=== PATIENT | male | born 1980 | race Caucasian/White ===

== ENCOUNTER 2018-04-11 08:43 | Emergency (ER) | payer SELFPAY ==
[2018-04-11] MEDS ORDERED: Naproxen 500 MG TAB ONE (09:05)
[2018-04-11] MEDS ORDERED: Dexamethasone 4 MG TAB ONE (09:05)
== END 2018-04-11 09:35 | disposition home or self-care (01) ==
LOC: MADERS 08:43
DX: S86.811A Strain of other muscle(s) and tendon(s) at lower leg level, right leg, initial encounter (principal); F17.210 Nicotine dependence, cigarettes, uncomplicated; X50.1XXA Overexertion from prolonged static or awkward postures, initial encounter
CPT/HCPCS: 99283; J8540

== ENCOUNTER 2018-07-02 11:52 | Outpatient (CLI) | payer BC ==
--- NOTE | 2018-07-02 14:19 | RAD ---
RIGHT KNEE FOUR VIEWS: History: Right knee pain. FINDINGS/IMPRESSION: No fracture, dislocation, or bony destruction is seen. There is fullness of the suprapatellar pouch, suspicious for joint effusion. POS: [facility]
== END 2018-07-02 11:53 | disposition home or self-care (01) ==
LOC: MADRAD 11:52
PROVIDERS: ATTEND Family Medicine
DX: M25.561 Pain in right knee (principal)

== ENCOUNTER 2018-09-14 20:52 | Emergency (ER) | payer BC ==
[~2018-09-14 20:52] MED LIST: Sodium Chloride 0.9% 1,000 ML BAG ONE; Succinylcholine Chloride 20 MG/ML 10 ml SYRINGE FS ONE
[2018-09-14] MEDS ORDERED: Haloperidol Lactate 5 MG/ML VIAL ONE (21:02)
[2018-09-14] MEDS ORDERED: Midazolam HCl 10 mg/2 ml Vial ONE ×2 (21:02→23:02)
[2018-09-14] MEDS ORDERED: Lorazepam 2 MG/ML VIAL ONE (21:02)
[2018-09-14 21:33] LABS: Bilirubin Negative (Negative); Blood, Urine Negative (Negative); Clarity Clear (Clear); Glucose, Urine (Dipstick) Negative (Negative); Leukocyte Negative (Negative); Nitrite Negative (Negative); Protein, Urine (Dipstick) Negative (Neg-Trace); Urobilinogen 0.2 mg/dL (0.2-1.0); pH, Urine 5.5 (5.0-9.0)
[2018-09-14 21:36] LABS: Specific Gravity, Urine 1.025 (1.002-1.036)
[2018-09-14 21:41] LABS: ALT (SGPT) 43 U/L (8-55); AST (SGOT) 46 U/L (5-34); Albumin 4.8 g/dL (3.5-5.0); Alcohol 11 mg/dL (Less than 10); Alkaline Phosphatase 104 U/L (40-150); Anion Gap 24 mmol/L (10-20); BUN (Urea Nitrogen) 14 mg/dL (8.9-20.6); Bilirubin, Total 0.3 mg/dL (0.2-1.2); Calc. Creatinine Clearance 0 mL/min (70-130); Calcium 9.7 mg/dL (7.8-10.44); Carbon Dioxide 17 mmol/L (22-29); Chloride 104 mmol/L (98-107); Estimated GFR-MDRD 47; Globulin 3.5 g/dL (2.4-3.5); Glucose 229 mg/dL (70-105); Potassium 3.8 mmol/L (3.5-5.1); Protein, Total 8.3 g/dL (6.0-8.3); Sodium 141 mmol/L (136-145)
[2018-09-14 21:42] LABS: Acetaminophen Less than 6.0 mcg/mL (10.0-30.0); Alcohol Less than 10 mg/dL (Less than 10); Band 3 % (5-11); CK (CPK) 818 U/L (30-200); Hemoglobin 15.3 g/dL (14.0-18.0); Lymphocytes 61 % (21-51); MDiff Complete? YES; Mean Corpuscular HGB CONC 33.2 g/dL (32.0-36.0); Mean Corpuscular Hemoglobin 32.6 pg (27.0-31.0); Mean Corpuscular Volume 98.4 fL (78.0-98.0); Mean Platelet Volume 9.5 fL (7.4-10.4); Monocytes 3 % (0-10); Neutrophil 31 % (42-75); Platelet Count 331 thou/uL (130-400); Platelet Morphology Comment Appears Adequate; RBC Distribution Width 11.6 % (11.5-14.5); RBC Morphology Normal; Reactive Lymphocytes 2 % (0-10); Red Blood Cell (RBC) Count 4.67 mill/uL (4.70-6.10); Salicylate Less than 8.0 mg/dL (15.0-30.0); White Blood Cell (WBC) Count 36.2 thou/uL (4.8-10.8)
[2018-09-14 21:43] LABS: Amphetamine Detected (NotDetected); Barbiturates Screen Not Detected (NotDetected); Benzodiazepine Screen Not Detected (NotDetected); Cocaine Metabolite Screen Not Detected (NotDetected); Medtox Control Line Valid? VALID (VALID); Methadone Not Detected (NotDetected); Methamphetamine Detected (NotDetected); Opiate Screen Not Detected (NotDetected); Oxycodone Screen Not Detected (NotDetected); Phencyclidine (PCP) Detected (NotDetected); THC/Cannabinoid Screen Detected (NotDetected); Tricyclic Screen Not Detected (NotDetected)
--- NOTE | 2018-09-14 22:14 | RAD ---
RADIOGRAPH CHEST 1 VIEW: Date: 09/14/18 Time: 9:33 p.m. HISTORY: 38-year-old male status post drug overdose. COMPARISON: 02/03/09 FINDINGS: The lungs are very low on the current study, making this a limited study. There is a new finding of s mall region of mildly increased attenuation at the infrahilar region of the left medial lower lung zo jennyfer. No pulmonary edema. No pneumothorax. The cardiac shadow is obscured by the shallow inspiration. IMPRESSION: 1. Limited study due to hypoinflation of the lungs. 2. Small nonspecific pulmonary patchy density in the left infrahilar region. Uncertain whether t his represents atelectasis or aspiration pneumonia. BALA [] POS: [facility]
--- NOTE | 2018-09-14 22:15 | CT ---
CT BRAIN NONCONTRAST: 09/14/18 HISTORY: 38-year-old male status post acute head trauma from fall with scalp abrasion. FINDINGS: There is no midline shift or any other mass effect. There is no evidence of acute intracranial hemor rhage, large cortical infarct, obstructive hydrocephalus, or extraaxial fluid collection. The calvar ium is intact. IMPRESSION: No acute intracranial findings. jn [] POS: [facility]
--- NOTE | 2018-09-14 22:18 | CT ---
CT CERVICAL SPINE NONCONTRAST: 09/14/18 HISTORY: 38-year-old male status post acute cervical trauma from fall. FINDINGS: Images are degraded by patient motion, and this could result in missing of nondisplaced or minimally displaced fractures. Bilateral palatine tonsils are enlarged, and kiss at midline, narrowing the oral airway. There are no jumped or perched facets. There is no convincing evidence of acute fracture. The vertebral body heights are maintained. There is no prevertebral soft tissue swelling. IMPRESSION: 1. No evidence of acute fracture or acute traumatic subluxation. 2. Hyperplasia of bilateral palatine tonsils resulting in significant narrowing of the oropharyn geal airway. blaze [] POS: [facility]
[2018-09-14] MEDS ORDERED: Fentanyl 100 MCG/2 ML VIAL ONE (22:25)
--- NOTE | 2018-09-14 23:42 | RAD ---
RADIOGRAPH CHEST 1 VIEW: Date: 09/14/18 Time: 11:27 p.m. HISTORY: 38-year-old male status post intubation. COMPARISON: 09/14/18 at 9:33 p.m. FINDINGS: This is a supine image, which would be insensitive for pneumothorax detection. Again, lung volumes ar e very low. There is a new ETT with distal tip 5 cm superior to the greta. There are now new streaky parahilar mid lung zone bilateral pulmonary densities presenting subsegmental atelectasis. The previ ously described patchy density at the infrahilar left medial lower lung zone remains. There is gaseou s distention of the stomach. IMPRESSION: 1. Endotracheal tube placement. 2. New central bilateral subsegmental atelectasis. 3. Left infrahilar density as previously mentioned. 4. Gaseous gastric distention. BALA [] POS: [facility]
[2018-09-15] MEDS ORDERED: Rocuronium Bromide 10 MG/ML (10ML VIAL) ONE (02:34)
== END 2018-09-14 23:41 | disposition short-term general hospital (02) ==
LOC: MADERS 20:52
DX: T40.7X1A Poisoning by cannabis (derivatives), accidental (unintentional), initial encounter (principal); T51.91XA Toxic effect of unspecified alcohol, accidental (unintentional), initial encounter; S00.211A Abrasion of right eyelid and periocular area, initial encounter; S00.81XA Abrasion of other part of head, initial encounter; F17.210 Nicotine dependence, cigarettes, uncomplicated; X58.XXXA Exposure to other specified factors, initial encounter
CPT/HCPCS: 31500; 51702; 70450; 71045; 72125; 80053; 80306; 80307; 81003; 82550; 85025; 93005; 96361; 96372; 96374; 96375; 96376; 99292; J1630; J2060; J2250; J3010; J7050

== ENCOUNTER 2018-11-30 11:23 | Emergency (ER) | payer BC, SELFPAY ==
[2018-11-30] MEDS ORDERED: Morphine 4 MG/ML VIAL ONE (11:50)
[2018-11-30] MEDS ORDERED: Ondansetron PF 4 MG/2 ML Vial ONE (11:50)
[2018-11-30 12:19] LABS: #Basophils 0.1 thou/uL (0.0-0.2); #Eosinphils 0.4 thou/uL (0.0-0.7); #Lymphocytes 2.4 thou/uL (1.20-3.40); #Monocytes 0.4 thou/uL (0.11-0.59); #Neutrophils 6.6 thou/uL (1.40-6.50); %Basophils 0.8 % (0.0-1.0); %Eosinophils 3.8 % (0.0-10.0); %Lymphocytes 24.5 % (21.0-51.0); %Monocytes 3.7 % (0.0-10.0); %Neutrophils 67.2 % (42.0-75.0); Hemoglobin 15.3 g/dL (14.0-18.0); Mean Corpuscular HGB CONC 33.1 g/dL (32.0-36.0); Mean Corpuscular Hemoglobin 30.8 pg (27.0-31.0); Mean Platelet Volume 8.7 fL (7.4-10.4); Platelet Count 276 thou/uL (130-400); RBC Distribution Width 11.1 % (11.5-14.5); Red Blood Cell (RBC) Count 4.96 mill/uL (4.70-6.10); White Blood Cell (WBC) Count 9.9 thou/uL (4.8-10.8)
[2018-11-30 12:31] LABS: Bilirubin Negative (Negative); Blood, Urine Negative (Negative); Clarity Clear (Clear); Glucose, Urine (Dipstick) Negative (Negative); Leukocyte Negative (Negative); Nitrite Negative (Negative); Protein, Urine (Dipstick) Negative (Neg-Trace); Specific Gravity, Urine 1.015 (1.005-1.030); Urobilinogen 0.2 mg/dL (0.2-1.0); pH, Urine 5.5 (5.0-9.0)
[2018-11-30 12:38] LABS: ALT (SGPT) 29 U/L (8-55); AST (SGOT) 20 U/L (5-34); Albumin 4.5 g/dL (3.5-5.0); Alkaline Phosphatase 119 U/L (40-150); Anion Gap 13 mmol/L (10-20); BUN (Urea Nitrogen) 14 mg/dL (8.9-20.6); Bilirubin, Total 0.4 mg/dL (0.2-1.2); Calc. Creatinine Clearance 0 mL/min (70-130); Carbon Dioxide 27 mmol/L (22-29); Chloride 102 mmol/L (98-107); Estimated GFR-MDRD 62; Globulin 3.6 g/dL (2.4-3.5); Glucose 99 mg/dL (70-105); Lipase 65 U/L (8-78); Potassium 4.1 mmol/L (3.5-5.1); Protein, Total 8.1 g/dL (6.0-8.3); Sodium 138 mmol/L (136-145)
--- NOTE | 2018-11-30 14:07 | CT ---
CT ABDOMEN AND PELVIS WITHOUT CONTRAST: History: Severe left flank pain. Comparison: None. FINDINGS: Lung bases are clear. No pericardial effusion. No hydroureteronephrosis or nephroureterolithiasis. No secondary evidence of a recently passed stone. No dilated loops of large or small bowel. No free intraperitoneal gas or fluid. The appendix is visualized and is normal. Noncontrast evaluation of the liver, spleen, pancreas, and adrenal glands are all normal. No retroperitoneal adenopathy. Skeleton is unremarkable. IMPRESSION: 1. No nephroureterolithiasis or hydroureteronephrosis. No secondary evidence of recently passed stone . 2. No acute intraabdominal abnormality. Normal appendix. POS: [facility]
== END 2018-11-30 13:30 | disposition home or self-care (01) ==
LOC: MADERS 11:23
DX: R10.9 Unspecified abdominal pain (principal); F17.200 Nicotine dependence, unspecified, uncomplicated
CPT/HCPCS: 36415; 74176; 80053; 81003; 83690; 85025; 96372; J2270; J2405

== ENCOUNTER 2020-07-20 01:35 | Emergency (ER) | payer SELFPAY | END 2020-07-20 02:07 | disposition home or self-care (01) | LOC: MADERS 01:35 | DX: H61.23 Impacted cerumen, bilateral (principal); F17.200 Nicotine dependence, unspecified, uncomplicated | CPT/HCPCS: 99282 ==

== ENCOUNTER 2020-09-21 06:48 | Emergency (ER) | payer SELFPAY | END 2020-09-21 07:45 | disposition home or self-care (01) | LOC: MADERS 06:48 | DX: L23.7 Allergic contact dermatitis due to plants, except food (principal); F17.210 Nicotine dependence, cigarettes, uncomplicated | CPT/HCPCS: 96372; 99282; J1040 ==

== ENCOUNTER 2020-10-04 11:15 | Emergency (ER) | payer SELFPAY | END 2020-10-04 12:00 | disposition home or self-care (01) | LOC: MADERS 11:15 | DX: L23.7 Allergic contact dermatitis due to plants, except food (principal); F17.210 Nicotine dependence, cigarettes, uncomplicated | CPT/HCPCS: 99282 ==

== ENCOUNTER 2021-05-22 15:32 | Emergency (ER) | payer SELFPAY ==
[2021-05-22] MEDS ORDERED: predniSONE 20 MG TAB ONE (17:23)
== END 2021-05-22 17:25 | disposition home or self-care (01) ==
LOC: MADERS 15:32
DX: L50.9 Urticaria, unspecified (principal); F17.210 Nicotine dependence, cigarettes, uncomplicated
CPT/HCPCS: 99282; J7512

== ENCOUNTER 2021-06-04 17:36 | Emergency (ER) | payer SELFPAY | END 2021-06-04 18:37 | disposition home or self-care (01) | LOC: MADERS 17:36 | DX: L98.8 Other specified disorders of the skin and subcutaneous tissue (principal); F17.210 Nicotine dependence, cigarettes, uncomplicated | CPT/HCPCS: 99283 ==